=== PATIENT | female | born 1945 | race Caucasian/White ===

== ENCOUNTER → 2017-12-16 | Outpatient (CLI) | payer MEDICARE ==
--- NOTE | 2017-12-17 08:52 | Diagnostic Imaging Report ---
INDICATION: 50+ pack year smoking history for screening. No priors Low dose screening CT chest performed. Findings: There is a pleural parenchymal nodule in the right upper lobe the apex posterior medially slightly somewhat elongated measuring 1.8 x 1.0 cm and has central soft tissue like attenuation in density. It is indeterminate scar versus neoplasm and given its size and presentation of baseline study, correlative metabolic PET CT recommended for its further evaluation. There were no other suspect lung nodules. Some mild zones of linear subpleural scarring in the apices and bases as well as some slight subpleural fibrotic changes in the right upper lobe anteriorly. There is mild cylindrical bronchiectasis. There is mild basilar atelectasis. A small amount of fat herniated through a defect in the diaphragms posterior medially noted chronic. Symmetrical hyperexpansion of the lungs with features of centrilobular emphysema. Some subpleural scarring and cyst formation in the infrahilar right lower lobe medially. There were no findings suggestive of thoracic lymphadenopathy. The calcified aorta is nonaneurysmal. Patient has a small pericardial effusion predominantly anteriorly distributed with a maximal thickness of 5-6 mm. No pleural fluid. The visualized upper abdomen grossly unremarkable. IMPRESSION: Presenting at a baseline study is a somewhat elongated soft tissue density subpleural nodule right upper lobe indeterminate but warranting metabolic PET CT as its further evaluation. There are substantial background changes of COPD with no other potential suspect focus. Tiny pericardial effusion. L-RADS category 4A suspicious abnormality and given its size and soft tissue component correlative metabolic PET CT recommended for its further investigation. Dictated by: Dictated on workstation # [id number]
== END ==
LOC: EDBD → RAD 16:03
PROVIDERS: ATTEND Family Medicine
DX: Z12.2 Encounter for screening for malignant neoplasm of respiratory organs (principal); F17.210 Nicotine dependence, cigarettes, uncomplicated

== ENCOUNTER → 2018-01-19 | Outpatient (CLI) | payer MEDICARE ==
--- NOTE | 2018-01-19 11:11 | Diagnostic Imaging Report ---
INDICATION: A right upper lobe pulmonary nodule was noted on a CT chest screening study. This study is performed for further evaluation. TECHNIQUE: The serum blood glucose level at the time of injection was 122 mg/dL. The patient was administered 13.6 mCi of F-18 FDG intravenously administered in the right antecubital location and PET imaging was performed from the top of the skull to the mid thighs. A noncontrast CT was also performed for attenuation correction and anatomic correlation. COMPARISON: Correlation is made with the recent CT chest screening study from 12/16/2017. FINDINGS: Symmetric activity throughout the brain is identified. The soft tissues of the neck are unremarkable. No hypermetabolic foci in the chest are identified. Specifically, the questionable nodule in the right upper lobe posteromedially does not show FDG avidity. The nancy and mediastinum are unremarkable. The remainder of the pulmonary parenchyma is unremarkable. Physiologic activity throughout the abdomen and pelvis is seen within the GI and tracts. No abnormal region of hypermetabolism is identified. IMPRESSION: Unremarkable PET/CT scan. Specifically, the abnormal nodular density in the right upper lobe noted on the CT chest screening study does not show FDG avidity and most likely represents an area of scarring. Even so, a followup CT chest in 6 months is recommended to confirm stability. Dictated by: Dictated on workstation # [id number]
== END ==
LOC: RAD 07:51
PROVIDERS: ATTEND Family Medicine
DX: R91.8 Other nonspecific abnormal finding of lung field (principal)